=== PATIENT | male | born 1940 | race Hispanic/Latino ===

== ENCOUNTER → 2023-09-17 | Outpatient (CLI) | payer MEDICARE, OTHER | END | disposition home or self-care (01) | LOC: RAH 12:10 | PROVIDERS: ATTEND Internal Medicine | DX: I25.10 Atherosclerotic heart disease of native coronary artery without angina pectoris (principal); J44.9 Chronic obstructive pulmonary disease, unspecified; Z90.49 Acquired absence of other specified parts of digestive tract | CPT/HCPCS: 71250 ==

== ENCOUNTER 2023-10-30 09:32 | Emergency (ER) | payer MEDICARE ==
[~2023-10-30] VITALS: Ht 162.6 cm; Wt 83.5 kg
[~2023-10-30 09:32] MED LIST: FURO20TA4 PO; LEFL20TA22 PO; MULT-1367 PO; OLME5TAB29 PO; PRED20TA3 PO; ROSU20TA73 PO
[2023-10-30 10:29] LABS: CREATININE 1.2 mg/dL (0.5-1.5); POTASSIUM 4.1 mmol/L (3.5-5.1)
[2023-10-30 10:33] LABS: ALBUMIN 2.2 g/dL (3.5-5.0); BILIRUBIN,TOTAL 0.4 mg/dL (0.2-1.0); TOTAL PROTEIN, SERUM 4.8 g/dL (6.0-8.3)
[2023-10-30 11:07] LABS: BASOPHILS # (AUTO) 0.03 K/uL (0.00-0.20); BASOPHILS % (AUTO) 0.4 % (0.0-5.0); EOSINOPHILS # (AUTO) 0.03 K/uL (0.00-0.70); EOSINOPHILS % (AUTO) 0.4 % (0.0-8.0); HEMATOCRIT 22.3 % (42-54); LYMPHOCYTES % (AUTO) 12.3 % (21.0-51.0); MEAN CORPUSCULAR HEMOGLOBIN 29.3 pg (27.0-33.0); MEAN CORPUSCULAR HGB CONC 31.4 g/dL (32.0-36.0); MEAN CORPUSCULAR VOLUME 93.3 fL (79-99); MONOCYTES # (AUTO) 0.6 K/uL (0.1-1.0); MONOCYTES % (AUTO) 7.3 % (3.0-13.0); NEUTROPHILS # (AUTO) 5.8 K/uL (1.8-7.7); NEUTROPHILS % (AUTO) 71.1 % (40.0-77.0); NUCLEATED RED BLOOD CELLS 4.8 % (0.0-0.19); PLATELET COUNT (AUTO) 284 K/uL (130-400); RED BLOOD CELL COUNT(AUTO) 2.39 MIL/uL (4.50-6.20); RED CELL DISTRIBUTION WIDTH 22.1 % (11.0-15.5); WHITE BLOOD COUNT (AUTO) 8.2 K/uL (4.8-10.8)
[2023-10-30 11:21] LABS: INR <= 0.93 (0.85-1.15); PROTHROMBIN TIME 10.8 SEC (9.6-11.6)
[2023-10-30 11:22] LABS: PARTIAL THROMBOPLASTIN TIME 20.7 SEC (26.3-35.5)
[2023-10-30 11:31] LABS: B-TYPE NATRIURETIC PEPTIDE 246 pg/mL (0-100)
[2023-10-30 17:51] VITALS: BP 132/78; PULSE 85; RESP 18; O2SAT 98
== END 2023-10-30 17:52 | disposition home or self-care (01) ==
LOC: EDH 09:32
DX: D64.9 Anemia, unspecified (principal); K64.9 Unspecified hemorrhoids; I13.0 Hypertensive heart and chronic kidney disease with heart failure and stage 1 through stage 4 chronic kidney disease, or unspecified chronic kidney disease; E11.22 Type 2 diabetes mellitus with diabetic chronic kidney disease; N18.9 Chronic kidney disease, unspecified; M19.90 Unspecified osteoarthritis, unspecified site; J44.9 Chronic obstructive pulmonary disease, unspecified; Z79.52 Long term (current) use of systemic steroids; Z79.69 Long term (current) use of other immunomodulators and immunosuppressants; Z79.899 Other long term (current) drug therapy; Z90.49 Acquired absence of other specified parts of digestive tract
CPT/HCPCS: 99285; 36430; 71045; 84484; 80053; 83880; 85025; 85610; 85730; 86850; 86900; 86901; 86923; 36415; 93005; P9016

== ENCOUNTER → 2023-12-06 | Outpatient (CLI) | payer MEDICARE ==
[~2023-12-06] MED LIST changes: +APIX5TAB PO; +BACTSS PO; +LIDOCAINE HCL 4% LTA SOL 4 ML VIAL TP ONE; +METF-444 PO; +PANT40TA54 PO; +TRAM50TA4 PO
== END | disposition home or self-care (01) ==
LOC: WHH 11:13
PROVIDERS: ATTEND Nurse Practitioner Family
DX: S51.002A Unspecified open wound of left elbow, initial encounter (principal); E11.622 Type 2 diabetes mellitus with other skin ulcer; L97.821 Non-pressure chronic ulcer of other part of left lower leg limited to breakdown of skin; E11.621 Type 2 diabetes mellitus with foot ulcer; L97.521 Non-pressure chronic ulcer of other part of left foot limited to breakdown of skin; I87.8 Other specified disorders of veins; I13.0 Hypertensive heart and chronic kidney disease with heart failure and stage 1 through stage 4 chronic kidney disease, or unspecified chronic kidney disease; E11.22 Type 2 diabetes mellitus with diabetic chronic kidney disease; N18.4 Chronic kidney disease, stage 4 (severe); E11.51 Type 2 diabetes mellitus with diabetic peripheral angiopathy without gangrene; E78.5 Hyperlipidemia, unspecified; J44.9 Chronic obstructive pulmonary disease, unspecified; M06.9 Rheumatoid arthritis, unspecified; Z90.49 Acquired absence of other specified parts of digestive tract; Z79.899 Other long term (current) drug therapy; X58.XXXA Exposure to other specified factors, initial encounter; Y93.89 Activity, other specified; Y92.89 Other specified places as the place of occurrence of the external cause; Y99.8 Other external cause status
CPT/HCPCS: 29581; 87070; 87077; 87186; A6248; A4450; 29580

== ENCOUNTER → 2023-12-13 | Outpatient (CLI) | payer MEDICARE ==
[~2023-12-13] MED LIST changes: -APIX5TAB PO
== END | disposition home or self-care (01) ==
LOC: WHH 09:21
PROVIDERS: ATTEND Nurse Practitioner Family
DX: S51.002D Unspecified open wound of left elbow, subsequent encounter (principal); E11.622 Type 2 diabetes mellitus with other skin ulcer; L97.822 Non-pressure chronic ulcer of other part of left lower leg with fat layer exposed; E11.621 Type 2 diabetes mellitus with foot ulcer; L97.522 Non-pressure chronic ulcer of other part of left foot with fat layer exposed; I87.8 Other specified disorders of veins; I13.0 Hypertensive heart and chronic kidney disease with heart failure and stage 1 through stage 4 chronic kidney disease, or unspecified chronic kidney disease; E11.22 Type 2 diabetes mellitus with diabetic chronic kidney disease; N18.4 Chronic kidney disease, stage 4 (severe); E11.51 Type 2 diabetes mellitus with diabetic peripheral angiopathy without gangrene; E78.5 Hyperlipidemia, unspecified; J44.9 Chronic obstructive pulmonary disease, unspecified; M06.9 Rheumatoid arthritis, unspecified; Z90.49 Acquired absence of other specified parts of digestive tract; Z79.899 Other long term (current) drug therapy; X58.XXXD Exposure to other specified factors, subsequent encounter
CPT/HCPCS: 11042; A6250; A4450; 29580

== ENCOUNTER → 2023-12-20 | Outpatient (CLI) | payer MEDICARE ==
[~2023-12-20] MED LIST changes: +APIX5TAB PO
== END | disposition home or self-care (01) ==
LOC: WHH 09:27
PROVIDERS: ATTEND Nurse Practitioner Family
DX: E11.622 Type 2 diabetes mellitus with other skin ulcer (principal); L97.822 Non-pressure chronic ulcer of other part of left lower leg with fat layer exposed; E11.621 Type 2 diabetes mellitus with foot ulcer; L97.522 Non-pressure chronic ulcer of other part of left foot with fat layer exposed; I87.8 Other specified disorders of veins; S51.002D Unspecified open wound of left elbow, subsequent encounter; E11.51 Type 2 diabetes mellitus with diabetic peripheral angiopathy without gangrene; E11.22 Type 2 diabetes mellitus with diabetic chronic kidney disease; I13.0 Hypertensive heart and chronic kidney disease with heart failure and stage 1 through stage 4 chronic kidney disease, or unspecified chronic kidney disease; N18.4 Chronic kidney disease, stage 4 (severe); J44.9 Chronic obstructive pulmonary disease, unspecified; E78.5 Hyperlipidemia, unspecified; M06.9 Rheumatoid arthritis, unspecified; Z90.49 Acquired absence of other specified parts of digestive tract; Z79.899 Other long term (current) drug therapy; X58.XXXD Exposure to other specified factors, subsequent encounter
CPT/HCPCS: 93925; G0463

== ENCOUNTER → 2023-12-20 | Outpatient (CLI) | payer MEDICARE ==
[~2023-12-20] MED LIST changes: -APIX5TAB PO; -LIDOCAINE HCL 4% LTA SOL 4 ML VIAL TP ONE
== END | disposition home or self-care (01) ==
LOC: RAH 13:27
PROVIDERS: ATTEND Nurse Practitioner Family
DX: I73.9 Peripheral vascular disease, unspecified (principal)
CPT/HCPCS: 93925

== ENCOUNTER 2023-12-24 11:51 | Observation (INO) | payer MEDICARE ==
[~2023-12-24] VITALS: Ht 172.7 cm; Wt 81.6 kg
[~2023-12-24 11:51] MED LIST changes: -APIX5TAB PO; -BACTSS PO; -METF-444 PO; -PANT40TA54 PO; -TRAM50TA4 PO
[2023-12-24] MEDS ORDERED: HEPARIN 1,000 UNIT VIAL IVP SCH (12:30)
[2023-12-24] MEDS: HEPARIN 5,000 UNIT VIAL IV ONE (12:51)
[2023-12-24] MEDS: HEPARIN 5,000 UNIT VIAL ONE (12:52)
[2023-12-24 12:58] LABS: BASOPHILS # (AUTO) 0.03 K/uL (0.00-0.20); BASOPHILS % (AUTO) 0.3 % (0.0-5.0); EOSINOPHILS # (AUTO) 0.01 K/uL (0.00-0.70); EOSINOPHILS % (AUTO) 0.1 % (0.0-8.0); HEMATOCRIT 32.4 % (42-54); IMMATURE GRANULOCYTE ABSOLUTE 0.33 K/uL (0-1); LYMPHOCYTES # (AUTO) 1.7 K/uL (1.0-4.8); LYMPHOCYTES % (AUTO) 14.5 % (21.0-51.0); MEAN CORPUSCULAR HEMOGLOBIN 29.1 pg (27.0-33.0); MEAN CORPUSCULAR HGB CONC 31.5 g/dL (32.0-36.0); MEAN CORPUSCULAR VOLUME 92.3 fL (79-99); MONOCYTES # (AUTO) 0.4 K/uL (0.1-1.0); MONOCYTES % (AUTO) 3.5 % (3.0-13.0); NEUTROPHILS # (AUTO) 9.3 K/uL (1.8-7.7); NEUTROPHILS % (AUTO) 78.8 % (40.0-77.0); PLATELET COUNT (AUTO) 238 K/uL (130-400); RED BLOOD CELL COUNT(AUTO) 3.51 MIL/uL (4.50-6.20); RED CELL DISTRIBUTION WIDTH 17.2 % (11.0-15.5); WHITE BLOOD COUNT (AUTO) 11.8 K/uL (4.8-10.8)
[2023-12-24 13:08] LABS: INR <= 0.93 (0.85-1.15); PROTHROMBIN TIME 10.3 SEC (9.6-11.6)
[2023-12-24 13:10] LABS: PARTIAL THROMBOPLASTIN TIME 22.5 SEC (26.3-35.5)
[2023-12-24 13:14] LABS: CREATININE 1.7 mg/dL (0.5-1.3); POTASSIUM 4.8 mmol/L (3.5-5.1)
[2023-12-24 13:19] LABS: BILIRUBIN,TOTAL 0.3 mg/dL (0.2-1.0); TOTAL PROTEIN, SERUM 6.5 g/dL (6.0-8.3)
[2023-12-24] MEDS: HEPARIN 25,000 UNITS/250ML D5W 250 ML IV SCH (15:26)
[2023-12-24 21:29] LABS: INR <= 0.93 (0.85-1.15)
[2023-12-24 21:30] LABS: PARTIAL THROMBOPLASTIN TIME 79.2 SEC (26.3-35.5)
[2023-12-24] MEDS ORDERED: TRAM50TA4 PO (22:35)
[2023-12-24] MEDS ORDERED: METF-444 PO (22:35)
[2023-12-24] MEDS ORDERED: PANT40TA54 PO (22:35)
[2023-12-24 23:00] VITALS: O2SAT 97
[2023-12-24 23:11] VITALS: BP 147/74; PULSE 98; RESP 18
[2023-12-24] MEDS ORDERED: BACTSS PO (23:21)
[2023-12-24 23:51] VITALS: O2SAT 98
[2023-12-25 03:47] LABS: HEMATOCRIT 27.8 % (42-54); MEAN CORPUSCULAR HEMOGLOBIN 29.4 pg (27.0-33.0); MEAN CORPUSCULAR VOLUME 91.7 fL (79-99); RED BLOOD CELL COUNT(AUTO) 3.03 MIL/uL (4.50-6.20); RED CELL DISTRIBUTION WIDTH 17.2 % (11.0-15.5)
[2023-12-25 03:59] LABS: INR <= 0.93 (0.85-1.15)
[2023-12-25 04:08] LABS: ALBUMIN 2.4 g/dL (3.5-5.0); BILIRUBIN,TOTAL 0.2 mg/dL (0.2-1.0); CREATININE 1.6 mg/dL (0.5-1.3); POTASSIUM 4.2 mmol/L (3.5-5.1); TOTAL PROTEIN, SERUM 5.2 g/dL (6.0-8.3)
[2023-12-25 04:20] LABS: PARTIAL THROMBOPLASTIN TIME > 139.0 SEC (26.3-35.5)
[2023-12-25 04:46] VITALS: BP 134/75; PULSE 88; RESP 18
[2023-12-25] MEDS ORDERED: TRAMADOL HCL 50 MG TABLET PO PRN (06:30)
[2023-12-25] MEDS: TRAMADOL HCL 50 MG TABLET PO PRN (06:50)
[2023-12-25 07:00] VITALS: BP 127/63; PULSE 89; RESP 20
[2023-12-25 08:00] VITALS: O2SAT 96
[2023-12-25] MEDS: SULFAMETHOXAZOLE PO SCH (09:00)
[2023-12-25] MEDS: TRIMETHOPRIM PO SCH (09:00)
[2023-12-25] MEDS: FUROSEMIDE 20 MG TABLET PO SCH (09:00)
[2023-12-25] MEDS ORDERED: SODIUM HYPOCHLORITE 0.125% 473 ML SOLUTION TP SCH (09:00)
[2023-12-25] MEDS: (Leflunomide 20 MG) PO SCH (09:00)
[2023-12-25] MEDS ORDERED: NON-FORMULARY MEDICATION 1 EACH (Olmesartan Medoxomil 5 MG) PO SCH (09:00)
[2023-12-25] MEDS: PREDNISONE 20 MG TABLET PO SCH (09:17)
[2023-12-25] MEDS: APIXABAN 5 MG TABLET PO SCH (09:17)
[2023-12-25] MEDS: MULTIVITAMIN TABLET PO SCH (09:17)
[2023-12-25] MEDS: PANTOPRAZOLE 40 MG TAB DR PO SCH (09:17)
[2023-12-25] MEDS: LOSARTAN 25 MG TABLET PO SCH (09:19)
[2023-12-25 10:16] VITALS: PULSE 110; PULSE 133; RESP 18; RESP 26; O2SAT 95; O2SAT 98
[2023-12-25 11:00] VITALS: BP 123/69; PULSE 92; RESP 20
[2023-12-25] MEDS ORDERED: APIX5TAB PO ×2 (12:31→12:34)
== END 2023-12-25 14:22 | disposition home or self-care (01) ==
LOC: EDH 11:51 → INTOOBSV 18:39 → EDHIP 18:39 → 2DH 21:10
PROVIDERS: ADMIT Internal Medicine; ATTEND Internal Medicine
DX: I82.412 Acute embolism and thrombosis of left femoral vein (principal); K64.9 Unspecified hemorrhoids; D64.9 Anemia, unspecified; L97.929 Non-pressure chronic ulcer of unspecified part of left lower leg with unspecified severity; M13.822 Other specified arthritis, left elbow; R60.0 Localized edema; J44.9 Chronic obstructive pulmonary disease, unspecified; E11.9 Type 2 diabetes mellitus without complications; I10 Essential (primary) hypertension; Z90.49 Acquired absence of other specified parts of digestive tract
CPT/HCPCS: 96376; 96366 ×2; 99285; 84484 ×2; 80053 ×2; 85025; 85610 ×3; 85730 ×3; 36415 ×2; 71045; 73221; 96365; 94760 ×2; 85027; 82948; 93005; J1644 ×3; G0378 ×2; 96372

== ENCOUNTER → 2023-12-24 | Outpatient (CLI) | payer MEDICARE ==
[~2023-12-24] MED LIST changes: +APIX5TAB PO
== END | disposition home or self-care (01) ==
LOC: RAH 09:47
PROVIDERS: ATTEND Nurse Practitioner Family
DX: S51.002A Unspecified open wound of left elbow, initial encounter (principal); M79.89 Other specified soft tissue disorders; M19.022 Primary osteoarthritis, left elbow; X58.XXXA Exposure to other specified factors, initial encounter; Y93.89 Activity, other specified; Y92.89 Other specified places as the place of occurrence of the external cause; Y99.8 Other external cause status
CPT/HCPCS: 73221

== ENCOUNTER → 2023-12-27 | Outpatient (CLI) | payer MEDICARE ==
[~2023-12-27] MED LIST changes: +APIX5TAB PO; +BACTSS PO; +LIDOCAINE HCL 4% LTA SOL 4 ML VIAL TP ONE; +METF-444 PO; +PANT40TA54 PO; +TRAM50TA4 PO
== END | disposition home or self-care (01) ==
LOC: WHH 09:19
PROVIDERS: ATTEND Family Medicine
DX: S51.002D Unspecified open wound of left elbow, subsequent encounter (principal); E11.622 Type 2 diabetes mellitus with other skin ulcer; L97.822 Non-pressure chronic ulcer of other part of left lower leg with fat layer exposed; E11.621 Type 2 diabetes mellitus with foot ulcer; L97.522 Non-pressure chronic ulcer of other part of left foot with fat layer exposed; I87.8 Other specified disorders of veins; E11.51 Type 2 diabetes mellitus with diabetic peripheral angiopathy without gangrene; E11.22 Type 2 diabetes mellitus with diabetic chronic kidney disease; I13.0 Hypertensive heart and chronic kidney disease with heart failure and stage 1 through stage 4 chronic kidney disease, or unspecified chronic kidney disease; N18.4 Chronic kidney disease, stage 4 (severe); J44.9 Chronic obstructive pulmonary disease, unspecified; E78.5 Hyperlipidemia, unspecified; M06.9 Rheumatoid arthritis, unspecified; Z90.49 Acquired absence of other specified parts of digestive tract; Z79.899 Other long term (current) drug therapy; X58.XXXD Exposure to other specified factors, subsequent encounter
CPT/HCPCS: 11042

== ENCOUNTER → 2024-01-03 | Outpatient (CLI) | payer MEDICARE ==
[~2024-01-03] MED LIST changes: -LIDOCAINE HCL 4% LTA SOL 4 ML VIAL TP ONE
== END | disposition home or self-care (01) ==
LOC: WHH 09:19
PROVIDERS: ATTEND Nurse Practitioner Family
DX: S51.002D Unspecified open wound of left elbow, subsequent encounter (principal); E11.622 Type 2 diabetes mellitus with other skin ulcer; L97.822 Non-pressure chronic ulcer of other part of left lower leg with fat layer exposed; E11.621 Type 2 diabetes mellitus with foot ulcer; L97.522 Non-pressure chronic ulcer of other part of left foot with fat layer exposed; I87.8 Other specified disorders of veins; E11.51 Type 2 diabetes mellitus with diabetic peripheral angiopathy without gangrene; E11.22 Type 2 diabetes mellitus with diabetic chronic kidney disease; I13.0 Hypertensive heart and chronic kidney disease with heart failure and stage 1 through stage 4 chronic kidney disease, or unspecified chronic kidney disease; N18.4 Chronic kidney disease, stage 4 (severe); J44.9 Chronic obstructive pulmonary disease, unspecified; E78.5 Hyperlipidemia, unspecified; M06.9 Rheumatoid arthritis, unspecified; Z90.49 Acquired absence of other specified parts of digestive tract; Z79.899 Other long term (current) drug therapy; X58.XXXD Exposure to other specified factors, subsequent encounter
CPT/HCPCS: 11042; A6021

== ENCOUNTER → 2024-01-10 | Outpatient (CLI) | payer MEDICARE ==
[~2024-01-10] MED LIST changes: +LIDOCAINE HCL 4% LTA SOL 4 ML VIAL TP ONE
== END | disposition home or self-care (01) ==
LOC: WHH 09:28
PROVIDERS: ATTEND Nurse Practitioner Family
DX: S51.002D Unspecified open wound of left elbow, subsequent encounter (principal); E11.622 Type 2 diabetes mellitus with other skin ulcer; L97.822 Non-pressure chronic ulcer of other part of left lower leg with fat layer exposed; E11.621 Type 2 diabetes mellitus with foot ulcer; L97.522 Non-pressure chronic ulcer of other part of left foot with fat layer exposed; I87.8 Other specified disorders of veins; E11.51 Type 2 diabetes mellitus with diabetic peripheral angiopathy without gangrene; E11.22 Type 2 diabetes mellitus with diabetic chronic kidney disease; I13.0 Hypertensive heart and chronic kidney disease with heart failure and stage 1 through stage 4 chronic kidney disease, or unspecified chronic kidney disease; N18.4 Chronic kidney disease, stage 4 (severe); J44.9 Chronic obstructive pulmonary disease, unspecified; E78.5 Hyperlipidemia, unspecified; M06.9 Rheumatoid arthritis, unspecified; Z90.49 Acquired absence of other specified parts of digestive tract; Z79.899 Other long term (current) drug therapy
CPT/HCPCS: G0463; A6021; A6196; A4450

== ENCOUNTER → 2024-01-17 | Outpatient (CLI) | payer MEDICARE | END | disposition home or self-care (01) | LOC: WHH 09:16 | PROVIDERS: ATTEND Nurse Practitioner Family | DX: S51.002D Unspecified open wound of left elbow, subsequent encounter (principal); E11.622 Type 2 diabetes mellitus with other skin ulcer; L97.822 Non-pressure chronic ulcer of other part of left lower leg with fat layer exposed; E11.621 Type 2 diabetes mellitus with foot ulcer; L97.522 Non-pressure chronic ulcer of other part of left foot with fat layer exposed; I87.8 Other specified disorders of veins; E11.51 Type 2 diabetes mellitus with diabetic peripheral angiopathy without gangrene; E11.22 Type 2 diabetes mellitus with diabetic chronic kidney disease; I13.0 Hypertensive heart and chronic kidney disease with heart failure and stage 1 through stage 4 chronic kidney disease, or unspecified chronic kidney disease; N18.4 Chronic kidney disease, stage 4 (severe); J44.9 Chronic obstructive pulmonary disease, unspecified; E78.5 Hyperlipidemia, unspecified; M06.9 Rheumatoid arthritis, unspecified; Z90.49 Acquired absence of other specified parts of digestive tract; Z79.899 Other long term (current) drug therapy; X58.XXXD Exposure to other specified factors, subsequent encounter | CPT/HCPCS: G0463; A6021 ==

== ENCOUNTER → 2024-01-24 | Outpatient (CLI) | payer MEDICARE | END | disposition home or self-care (01) | LOC: WHH 09:16 | PROVIDERS: ATTEND Nurse Practitioner Family | DX: S51.002D Unspecified open wound of left elbow, subsequent encounter (principal); E11.622 Type 2 diabetes mellitus with other skin ulcer; L97.822 Non-pressure chronic ulcer of other part of left lower leg with fat layer exposed; I87.8 Other specified disorders of veins; E11.51 Type 2 diabetes mellitus with diabetic peripheral angiopathy without gangrene; E11.22 Type 2 diabetes mellitus with diabetic chronic kidney disease; I13.0 Hypertensive heart and chronic kidney disease with heart failure and stage 1 through stage 4 chronic kidney disease, or unspecified chronic kidney disease; N18.4 Chronic kidney disease, stage 4 (severe); J44.9 Chronic obstructive pulmonary disease, unspecified; E78.5 Hyperlipidemia, unspecified; M06.9 Rheumatoid arthritis, unspecified; Z90.49 Acquired absence of other specified parts of digestive tract; Z79.899 Other long term (current) drug therapy; X58.XXXD Exposure to other specified factors, subsequent encounter | CPT/HCPCS: G0463; A6021 ==

== ENCOUNTER → 2024-01-31 | Outpatient (CLI) | payer MEDICARE | END | disposition home or self-care (01) | LOC: WHH 09:36 | PROVIDERS: ATTEND Nurse Practitioner Family | DX: S51.002D Unspecified open wound of left elbow, subsequent encounter (principal); E11.622 Type 2 diabetes mellitus with other skin ulcer; L97.922 Non-pressure chronic ulcer of unspecified part of left lower leg with fat layer exposed; I87.8 Other specified disorders of veins; E11.51 Type 2 diabetes mellitus with diabetic peripheral angiopathy without gangrene; E11.22 Type 2 diabetes mellitus with diabetic chronic kidney disease; I13.0 Hypertensive heart and chronic kidney disease with heart failure and stage 1 through stage 4 chronic kidney disease, or unspecified chronic kidney disease; N18.4 Chronic kidney disease, stage 4 (severe); J44.9 Chronic obstructive pulmonary disease, unspecified; E78.5 Hyperlipidemia, unspecified; M06.9 Rheumatoid arthritis, unspecified; Z90.49 Acquired absence of other specified parts of digestive tract; Z79.899 Other long term (current) drug therapy; X58.XXXD Exposure to other specified factors, subsequent encounter | CPT/HCPCS: G0463; A6212; A6021; A6196 ==

== ENCOUNTER → 2024-02-07 | Outpatient (CLI) | payer MEDICARE | END | disposition home or self-care (01) | LOC: WHH 09:20 | PROVIDERS: ATTEND Nurse Practitioner Family | DX: S51.002D Unspecified open wound of left elbow, subsequent encounter (principal); E11.622 Type 2 diabetes mellitus with other skin ulcer; L97.822 Non-pressure chronic ulcer of other part of left lower leg with fat layer exposed; I87.8 Other specified disorders of veins; E11.51 Type 2 diabetes mellitus with diabetic peripheral angiopathy without gangrene; E11.22 Type 2 diabetes mellitus with diabetic chronic kidney disease; I13.0 Hypertensive heart and chronic kidney disease with heart failure and stage 1 through stage 4 chronic kidney disease, or unspecified chronic kidney disease; N18.4 Chronic kidney disease, stage 4 (severe); J44.9 Chronic obstructive pulmonary disease, unspecified; E78.5 Hyperlipidemia, unspecified; M06.9 Rheumatoid arthritis, unspecified; Z90.49 Acquired absence of other specified parts of digestive tract; Z79.899 Other long term (current) drug therapy; X58.XXXD Exposure to other specified factors, subsequent encounter | CPT/HCPCS: 11042; A6212; A6021; A6022 ==

== ENCOUNTER → 2024-02-14 | Outpatient (CLI) | payer MEDICARE | END | disposition home or self-care (01) | LOC: WHH 09:28 | PROVIDERS: ATTEND Nurse Practitioner Family | DX: E11.622 Type 2 diabetes mellitus with other skin ulcer (principal); L97.822 Non-pressure chronic ulcer of other part of left lower leg with fat layer exposed; S51.002D Unspecified open wound of left elbow, subsequent encounter; I87.8 Other specified disorders of veins; E11.51 Type 2 diabetes mellitus with diabetic peripheral angiopathy without gangrene; E11.22 Type 2 diabetes mellitus with diabetic chronic kidney disease; I13.0 Hypertensive heart and chronic kidney disease with heart failure and stage 1 through stage 4 chronic kidney disease, or unspecified chronic kidney disease; N18.4 Chronic kidney disease, stage 4 (severe); J44.9 Chronic obstructive pulmonary disease, unspecified; E78.5 Hyperlipidemia, unspecified; M06.9 Rheumatoid arthritis, unspecified; Z90.49 Acquired absence of other specified parts of digestive tract; Z79.899 Other long term (current) drug therapy; X58.XXXD Exposure to other specified factors, subsequent encounter | CPT/HCPCS: 87070; G0463; A6197; A6022 ==

== ENCOUNTER → 2024-02-21 | Outpatient (CLI) | payer MEDICARE | END | disposition home or self-care (01) | LOC: WHH 09:32 | PROVIDERS: ATTEND Nurse Practitioner Family | DX: E11.622 Type 2 diabetes mellitus with other skin ulcer (principal); L97.822 Non-pressure chronic ulcer of other part of left lower leg with fat layer exposed; I87.8 Other specified disorders of veins; S51.002D Unspecified open wound of left elbow, subsequent encounter; E11.51 Type 2 diabetes mellitus with diabetic peripheral angiopathy without gangrene; E11.22 Type 2 diabetes mellitus with diabetic chronic kidney disease; I13.0 Hypertensive heart and chronic kidney disease with heart failure and stage 1 through stage 4 chronic kidney disease, or unspecified chronic kidney disease; N18.4 Chronic kidney disease, stage 4 (severe); J44.9 Chronic obstructive pulmonary disease, unspecified; E78.5 Hyperlipidemia, unspecified; M06.9 Rheumatoid arthritis, unspecified; Z90.49 Acquired absence of other specified parts of digestive tract; Z79.899 Other long term (current) drug therapy; X58.XXXD Exposure to other specified factors, subsequent encounter | CPT/HCPCS: 11042; A6212; A6021; A6209; A4450 ==

== ENCOUNTER → 2024-02-26 | Outpatient (CLI) | payer MEDICARE ==
[~2024-02-26] MED LIST changes: -LIDOCAINE HCL 4% LTA SOL 4 ML VIAL TP ONE
== END | disposition home or self-care (01) ==
LOC: RAH 12:27
PROVIDERS: ATTEND Internal Medicine
DX: R60.9 Edema, unspecified (principal)
CPT/HCPCS: 93970

== ENCOUNTER → 2024-02-28 | Outpatient (CLI) | payer MEDICARE ==
[~2024-02-28] MED LIST changes: +LIDOCAINE HCL 4% LTA SOL 4 ML VIAL TP ONE
== END | disposition home or self-care (01) ==
LOC: WHH 09:17
PROVIDERS: ATTEND Nurse Practitioner Family
DX: E11.622 Type 2 diabetes mellitus with other skin ulcer (principal); L97.822 Non-pressure chronic ulcer of other part of left lower leg with fat layer exposed; S51.002D Unspecified open wound of left elbow, subsequent encounter; I87.8 Other specified disorders of veins; E11.51 Type 2 diabetes mellitus with diabetic peripheral angiopathy without gangrene; E11.22 Type 2 diabetes mellitus with diabetic chronic kidney disease; I13.0 Hypertensive heart and chronic kidney disease with heart failure and stage 1 through stage 4 chronic kidney disease, or unspecified chronic kidney disease; N18.4 Chronic kidney disease, stage 4 (severe); J44.9 Chronic obstructive pulmonary disease, unspecified; E78.5 Hyperlipidemia, unspecified; M06.9 Rheumatoid arthritis, unspecified; Z90.49 Acquired absence of other specified parts of digestive tract; Z79.899 Other long term (current) drug therapy; X58.XXXD Exposure to other specified factors, subsequent encounter
CPT/HCPCS: 29580; A6212; A6021; A6209; A6022; A6456

== ENCOUNTER → 2024-03-06 | Outpatient (CLI) | payer MEDICARE | END | disposition home or self-care (01) | LOC: WHH 09:34 | PROVIDERS: ATTEND Nurse Practitioner Family | DX: E11.622 Type 2 diabetes mellitus with other skin ulcer (principal); L97.822 Non-pressure chronic ulcer of other part of left lower leg with fat layer exposed; S51.002D Unspecified open wound of left elbow, subsequent encounter; I87.8 Other specified disorders of veins; E11.51 Type 2 diabetes mellitus with diabetic peripheral angiopathy without gangrene; E11.22 Type 2 diabetes mellitus with diabetic chronic kidney disease; I13.0 Hypertensive heart and chronic kidney disease with heart failure and stage 1 through stage 4 chronic kidney disease, or unspecified chronic kidney disease; N18.4 Chronic kidney disease, stage 4 (severe); J44.9 Chronic obstructive pulmonary disease, unspecified; E78.5 Hyperlipidemia, unspecified; M06.9 Rheumatoid arthritis, unspecified; Z90.49 Acquired absence of other specified parts of digestive tract; Z79.899 Other long term (current) drug therapy; X58.XXXD Exposure to other specified factors, subsequent encounter | CPT/HCPCS: 29580; A6212; A4649; A6456 ==

== ENCOUNTER → 2024-03-20 | Outpatient (CLI) | payer MEDICARE | END | disposition home or self-care (01) | LOC: WHH 09:25 | PROVIDERS: ATTEND Nurse Practitioner Family | DX: S51.002D Unspecified open wound of left elbow, subsequent encounter (principal); E11.622 Type 2 diabetes mellitus with other skin ulcer; L97.822 Non-pressure chronic ulcer of other part of left lower leg with fat layer exposed; I87.8 Other specified disorders of veins; E11.51 Type 2 diabetes mellitus with diabetic peripheral angiopathy without gangrene; E11.22 Type 2 diabetes mellitus with diabetic chronic kidney disease; I13.0 Hypertensive heart and chronic kidney disease with heart failure and stage 1 through stage 4 chronic kidney disease, or unspecified chronic kidney disease; N18.4 Chronic kidney disease, stage 4 (severe); J44.9 Chronic obstructive pulmonary disease, unspecified; E78.5 Hyperlipidemia, unspecified; M06.9 Rheumatoid arthritis, unspecified; Z90.49 Acquired absence of other specified parts of digestive tract; Z79.899 Other long term (current) drug therapy; W19.XXXD Unspecified fall, subsequent encounter | CPT/HCPCS: 17250; A4649; A6456 ==

== ENCOUNTER → 2024-03-27 | Outpatient (CLI) | payer MEDICARE | END | disposition home or self-care (01) | LOC: WHH 09:41 | PROVIDERS: ATTEND Nurse Practitioner Family | DX: E11.622 Type 2 diabetes mellitus with other skin ulcer (principal); L97.822 Non-pressure chronic ulcer of other part of left lower leg with fat layer exposed; I87.8 Other specified disorders of veins; S51.002D Unspecified open wound of left elbow, subsequent encounter; E11.51 Type 2 diabetes mellitus with diabetic peripheral angiopathy without gangrene; E11.22 Type 2 diabetes mellitus with diabetic chronic kidney disease; I13.0 Hypertensive heart and chronic kidney disease with heart failure and stage 1 through stage 4 chronic kidney disease, or unspecified chronic kidney disease; N18.4 Chronic kidney disease, stage 4 (severe); J44.9 Chronic obstructive pulmonary disease, unspecified; E78.5 Hyperlipidemia, unspecified; M06.9 Rheumatoid arthritis, unspecified; Z90.49 Acquired absence of other specified parts of digestive tract; Z79.899 Other long term (current) drug therapy; W19.XXXD Unspecified fall, subsequent encounter | CPT/HCPCS: 29580; A6212; A6456 ==

== ENCOUNTER → 2024-04-10 | Outpatient (CLI) | payer MEDICARE | END | disposition home or self-care (01) | LOC: WHH 09:18 | PROVIDERS: ATTEND Family Medicine | DX: E11.622 Type 2 diabetes mellitus with other skin ulcer (principal); L97.822 Non-pressure chronic ulcer of other part of left lower leg with fat layer exposed; I87.8 Other specified disorders of veins; S51.002D Unspecified open wound of left elbow, subsequent encounter; E11.51 Type 2 diabetes mellitus with diabetic peripheral angiopathy without gangrene; E11.22 Type 2 diabetes mellitus with diabetic chronic kidney disease; I13.0 Hypertensive heart and chronic kidney disease with heart failure and stage 1 through stage 4 chronic kidney disease, or unspecified chronic kidney disease; N18.4 Chronic kidney disease, stage 4 (severe); J44.9 Chronic obstructive pulmonary disease, unspecified; E78.5 Hyperlipidemia, unspecified; M06.9 Rheumatoid arthritis, unspecified; Z90.49 Acquired absence of other specified parts of digestive tract; Z79.899 Other long term (current) drug therapy; W19.XXXD Unspecified fall, subsequent encounter | CPT/HCPCS: 29580; A6212; A4649; A4450; A6456 ==

== ENCOUNTER → 2024-04-17 | Outpatient (CLI) | payer MEDICARE ==
[~2024-04-17] MED LIST changes: -LIDOCAINE HCL 4% LTA SOL 4 ML VIAL TP ONE
== END | disposition home or self-care (01) ==
LOC: WHH 09:20
PROVIDERS: ATTEND Family Medicine
DX: E11.622 Type 2 diabetes mellitus with other skin ulcer (principal); L97.822 Non-pressure chronic ulcer of other part of left lower leg with fat layer exposed; I87.8 Other specified disorders of veins; S51.002D Unspecified open wound of left elbow, subsequent encounter; E11.51 Type 2 diabetes mellitus with diabetic peripheral angiopathy without gangrene; E11.22 Type 2 diabetes mellitus with diabetic chronic kidney disease; I13.0 Hypertensive heart and chronic kidney disease with heart failure and stage 1 through stage 4 chronic kidney disease, or unspecified chronic kidney disease; N18.4 Chronic kidney disease, stage 4 (severe); J44.9 Chronic obstructive pulmonary disease, unspecified; E78.5 Hyperlipidemia, unspecified; M06.9 Rheumatoid arthritis, unspecified; Z90.49 Acquired absence of other specified parts of digestive tract; Z79.899 Other long term (current) drug therapy; W19.XXXD Unspecified fall, subsequent encounter
CPT/HCPCS: G0463; A6212; A4649

== ENCOUNTER → 2024-04-24 | Outpatient (CLI) | payer MEDICARE ==
[~2024-04-24] MED LIST changes: +LIDOCAINE HCL 4% LTA SOL 4 ML VIAL TP ONE
== END | disposition home or self-care (01) ==
LOC: WHH 09:16
PROVIDERS: ATTEND Family Medicine
DX: S51.002D Unspecified open wound of left elbow, subsequent encounter (principal); E11.622 Type 2 diabetes mellitus with other skin ulcer; L97.822 Non-pressure chronic ulcer of other part of left lower leg with fat layer exposed; I87.8 Other specified disorders of veins; E11.51 Type 2 diabetes mellitus with diabetic peripheral angiopathy without gangrene; E11.22 Type 2 diabetes mellitus with diabetic chronic kidney disease; I13.0 Hypertensive heart and chronic kidney disease with heart failure and stage 1 through stage 4 chronic kidney disease, or unspecified chronic kidney disease; N18.4 Chronic kidney disease, stage 4 (severe); J44.9 Chronic obstructive pulmonary disease, unspecified; E78.5 Hyperlipidemia, unspecified; M06.9 Rheumatoid arthritis, unspecified; Z87.891 Personal history of nicotine dependence; Z90.49 Acquired absence of other specified parts of digestive tract; Z79.899 Other long term (current) drug therapy; W19.XXXD Unspecified fall, subsequent encounter
CPT/HCPCS: G0463; A6212; A4649

== ENCOUNTER → 2024-05-01 | Outpatient (CLI) | payer MEDICARE ==
[~2024-05-01] MED LIST changes: -LIDOCAINE HCL 4% LTA SOL 4 ML VIAL TP ONE
== END | disposition home or self-care (01) ==
LOC: WHH 09:25
PROVIDERS: ATTEND Family Medicine
DX: S51.002D Unspecified open wound of left elbow, subsequent encounter (principal); E11.622 Type 2 diabetes mellitus with other skin ulcer; L97.822 Non-pressure chronic ulcer of other part of left lower leg with fat layer exposed; I87.8 Other specified disorders of veins; E11.51 Type 2 diabetes mellitus with diabetic peripheral angiopathy without gangrene; E11.22 Type 2 diabetes mellitus with diabetic chronic kidney disease; I13.0 Hypertensive heart and chronic kidney disease with heart failure and stage 1 through stage 4 chronic kidney disease, or unspecified chronic kidney disease; N18.4 Chronic kidney disease, stage 4 (severe); J44.9 Chronic obstructive pulmonary disease, unspecified; E78.5 Hyperlipidemia, unspecified; M06.9 Rheumatoid arthritis, unspecified; Z87.891 Personal history of nicotine dependence; Z90.49 Acquired absence of other specified parts of digestive tract; Z79.899 Other long term (current) drug therapy; W19.XXXD Unspecified fall, subsequent encounter
CPT/HCPCS: G0463; A6212; A4649

== ENCOUNTER → 2024-07-16 | Outpatient (CLI) | payer MEDICARE ==
[~2024-07-16] MED LIST changes: -ROSU20TA73 PO; +ROSU20TA98 PO
--- NOTE | 2024-07-16 15:29 | HMCIMG ---
US VENOUS DOPPLER BILATERAL HISTORY: Edema COMPARISON: None TECHNIQUE: Bilateral lower extremity venous Doppler ultrasound study was performed. FINDINGS: The common femoral, femoral, popliteal, and posterior tibial veins are visualized. Normal flow with augmentation and compressibilities are demonstrated. The greater saphenous veins are also seen and grossly patent. IMPRESSION: 1. No evidence of deep venous thrombosis is seen.
== END | disposition home or self-care (01) ==
LOC: RAH 14:36
PROVIDERS: ATTEND Internal Medicine
DX: R60.0 Localized edema (principal)
CPT/HCPCS: 93970

== ENCOUNTER → 2024-07-22 | Outpatient (CLI) | payer MEDICARE | END | disposition home or self-care (01) | LOC: WHH 08:02 | PROVIDERS: ATTEND Family Medicine | DX: S80.821A Blister (nonthermal), right lower leg, initial encounter (principal); S80.822A Blister (nonthermal), left lower leg, initial encounter; I73.9 Peripheral vascular disease, unspecified; R22.43 Localized swelling, mass and lump, lower limb, bilateral; E78.5 Hyperlipidemia, unspecified; M06.9 Rheumatoid arthritis, unspecified; E11.9 Type 2 diabetes mellitus without complications; I10 Essential (primary) hypertension; Z90.49 Acquired absence of other specified parts of digestive tract; Z87.891 Personal history of nicotine dependence; Z79.84 Long term (current) use of oral hypoglycemic drugs; Z79.899 Other long term (current) drug therapy; X58.XXXA Exposure to other specified factors, initial encounter; Y93.89 Activity, other specified; Y92.89 Other specified places as the place of occurrence of the external cause; Y99.8 Other external cause status | CPT/HCPCS: 29580; A4450; A6456 ==

== ENCOUNTER → 2024-07-29 | Outpatient (CLI) | payer MEDICARE | END | disposition home or self-care (01) | LOC: WHH 07:55 | PROVIDERS: ATTEND Family Medicine | DX: S80.821D Blister (nonthermal), right lower leg, subsequent encounter (principal); S80.822D Blister (nonthermal), left lower leg, subsequent encounter; E11.51 Type 2 diabetes mellitus with diabetic peripheral angiopathy without gangrene; R22.43 Localized swelling, mass and lump, lower limb, bilateral; I10 Essential (primary) hypertension; E78.5 Hyperlipidemia, unspecified; M06.9 Rheumatoid arthritis, unspecified; Z90.49 Acquired absence of other specified parts of digestive tract; Z87.891 Personal history of nicotine dependence; Z79.84 Long term (current) use of oral hypoglycemic drugs; Z79.899 Other long term (current) drug therapy; X58.XXXD Exposure to other specified factors, subsequent encounter | CPT/HCPCS: 29580; A6456 ==

== ENCOUNTER → 2024-09-16 | Outpatient (CLI) | payer MEDICARE | END | disposition home or self-care (01) | LOC: WHH 08:25 | PROVIDERS: ATTEND Family Medicine | DX: S80.822D Blister (nonthermal), left lower leg, subsequent encounter (principal); S80.821D Blister (nonthermal), right lower leg, subsequent encounter; E11.622 Type 2 diabetes mellitus with other skin ulcer; L97.821 Non-pressure chronic ulcer of other part of left lower leg limited to breakdown of skin; E11.51 Type 2 diabetes mellitus with diabetic peripheral angiopathy without gangrene; I10 Essential (primary) hypertension; E78.5 Hyperlipidemia, unspecified; I89.0 Lymphedema, not elsewhere classified; I73.9 Peripheral vascular disease, unspecified; R22.43 Localized swelling, mass and lump, lower limb, bilateral; M06.9 Rheumatoid arthritis, unspecified; Z90.49 Acquired absence of other specified parts of digestive tract; Z87.891 Personal history of nicotine dependence; Z79.84 Long term (current) use of oral hypoglycemic drugs; Z79.899 Other long term (current) drug therapy; X58.XXXD Exposure to other specified factors, subsequent encounter | CPT/HCPCS: G0463 ==

== ENCOUNTER → 2024-09-19 | Outpatient (CLI) | payer MEDICARE ==
--- NOTE | 2024-09-19 14:17 | HMCIMG ---
US ARTERIAL BILAT LOW EXT DUPL HISTORY: Peripheral vascular disease COMPARISON: None TECHNIQUE: Bilateral lower extremity arterial Doppler ultrasound study was performed. FINDINGS: Abnormal monophasic arterial waveforms are noted in bilateral posterior tibial arteries. Normal triphasic and biphasic arterial waveforms are noted in the common femoral, deep femoral, superficial femoral, popliteal, anterior tibial and dorsalis pedal arteries. On the right, the peak systolic velocity of the common femoral artery is 114 cm/s, the proximal femoral artery is 73 cm/s, the mid femoral artery is 76 cm/s, the distal femoral artery is 75 cm/s, the proximal popliteal artery is 54 cm/s, the distal popliteal artery is 55 cm/s, the anterior tibial artery is 97 cm/s, the posterior tibial artery artery is 27 cm/s,and the dorsalis pedal artery is 72 cm/s. On the left, the peak systolic velocity of the common femoral artery is 105 cm/s, the proximal femoral artery is 103 cm/s, the mid femoral artery is 89 cm/s, the distal femoral artery is 60 cm/s, the proximal popliteal artery is 67 cm/s, the distal popliteal artery is 46 cm/s, the anterior tibial artery is 94 cm/s, the posterior tibial artery artery is 24 cm/s,and the dorsalis pedal artery is 65 cm/s. IMPRESSION: 1. Atherosclerotic disease. 2. Abnormal monophasic arterial waveforms are noted in bilateral posterior tibial arteries.
--- NOTE | 2024-09-19 14:17 | HMCIMG ---
US VENOUS DOPPLER BILATERAL HISTORY: Peripheral vascular disease COMPARISON: 07/16/2024 TECHNIQUE: Bilateral lower extremity venous Doppler ultrasound study was performed. FINDINGS: The common femoral, femoral, popliteal, and posterior tibial veins are visualized. Normal flow with augmentation and compressibilities are demonstrated. The greater saphenous veins are also seen and grossly patent. IMPRESSION: 1. No evidence of deep venous thrombosis is seen.
== END | disposition home or self-care (01) ==
LOC: RAH 12:56
PROVIDERS: ATTEND Family Medicine
DX: I25.10 Atherosclerotic heart disease of native coronary artery without angina pectoris (principal); I77.9 Disorder of arteries and arterioles, unspecified; I73.9 Peripheral vascular disease, unspecified; I87.2 Venous insufficiency (chronic) (peripheral); R60.0 Localized edema; M79.661 Pain in right lower leg; M79.662 Pain in left lower leg
CPT/HCPCS: 93925; 93970

== ENCOUNTER → 2024-09-23 | Outpatient (CLI) | payer MEDICARE | END | disposition home or self-care (01) | LOC: WHH 08:41 | PROVIDERS: ATTEND Family Medicine | DX: S80.822D Blister (nonthermal), left lower leg, subsequent encounter (principal); S80.821D Blister (nonthermal), right lower leg, subsequent encounter; I89.0 Lymphedema, not elsewhere classified; E11.51 Type 2 diabetes mellitus with diabetic peripheral angiopathy without gangrene; I10 Essential (primary) hypertension; E78.5 Hyperlipidemia, unspecified; I73.9 Peripheral vascular disease, unspecified; R22.43 Localized swelling, mass and lump, lower limb, bilateral; M06.9 Rheumatoid arthritis, unspecified; Z90.49 Acquired absence of other specified parts of digestive tract; Z87.891 Personal history of nicotine dependence; Z79.84 Long term (current) use of oral hypoglycemic drugs; Z79.899 Other long term (current) drug therapy; X58.XXXD Exposure to other specified factors, subsequent encounter | CPT/HCPCS: G0463 ==

== ENCOUNTER → 2024-10-21 | Outpatient (CLI) | payer MEDICARE | END | disposition home or self-care (01) | LOC: WHH 08:17 | PROVIDERS: ATTEND Family Medicine | DX: I89.0 Lymphedema, not elsewhere classified (principal); R22.43 Localized swelling, mass and lump, lower limb, bilateral; S80.822D Blister (nonthermal), left lower leg, subsequent encounter; S80.821D Blister (nonthermal), right lower leg, subsequent encounter; E11.51 Type 2 diabetes mellitus with diabetic peripheral angiopathy without gangrene; I10 Essential (primary) hypertension; E78.5 Hyperlipidemia, unspecified; I73.9 Peripheral vascular disease, unspecified; M06.9 Rheumatoid arthritis, unspecified; Z90.49 Acquired absence of other specified parts of digestive tract; Z87.891 Personal history of nicotine dependence; Z79.84 Long term (current) use of oral hypoglycemic drugs; Z79.899 Other long term (current) drug therapy; X58.XXXD Exposure to other specified factors, subsequent encounter | CPT/HCPCS: G0463 ==

== ENCOUNTER → 2024-11-18 | Outpatient (CLI) | payer MEDICARE | END | disposition home or self-care (01) | LOC: WHH 08:27 | PROVIDERS: ATTEND Family Medicine | DX: E11.622 Type 2 diabetes mellitus with other skin ulcer (principal); L97.822 Non-pressure chronic ulcer of other part of left lower leg with fat layer exposed; E11.51 Type 2 diabetes mellitus with diabetic peripheral angiopathy without gangrene; I89.0 Lymphedema, not elsewhere classified; I10 Essential (primary) hypertension; E78.5 Hyperlipidemia, unspecified; R22.43 Localized swelling, mass and lump, lower limb, bilateral; M06.9 Rheumatoid arthritis, unspecified; Z90.49 Acquired absence of other specified parts of digestive tract; Z87.891 Personal history of nicotine dependence; Z79.84 Long term (current) use of oral hypoglycemic drugs; Z79.899 Other long term (current) drug therapy; X58.XXXD Exposure to other specified factors, subsequent encounter | CPT/HCPCS: G0463; A6212 ==

== ENCOUNTER → 2024-11-25 | Outpatient (CLI) | payer MEDICARE ==
[~2024-11-25] MED LIST changes: +LIDOCAINE HCL 4% LTA SOL 4 ML VIAL TP ONE
== END | disposition home or self-care (01) ==
LOC: WHH 08:29
PROVIDERS: ATTEND Family Medicine
DX: E11.622 Type 2 diabetes mellitus with other skin ulcer (principal); L97.822 Non-pressure chronic ulcer of other part of left lower leg with fat layer exposed; E11.51 Type 2 diabetes mellitus with diabetic peripheral angiopathy without gangrene; I89.0 Lymphedema, not elsewhere classified; I10 Essential (primary) hypertension; E78.5 Hyperlipidemia, unspecified; R22.43 Localized swelling, mass and lump, lower limb, bilateral; M06.9 Rheumatoid arthritis, unspecified; Z90.49 Acquired absence of other specified parts of digestive tract; Z87.891 Personal history of nicotine dependence; Z79.84 Long term (current) use of oral hypoglycemic drugs; Z79.899 Other long term (current) drug therapy; X58.XXXD Exposure to other specified factors, subsequent encounter
CPT/HCPCS: G0463; A6212

== ENCOUNTER → 2024-12-02 | Outpatient (CLI) | payer MEDICARE ==
[~2024-12-02] MED LIST changes: -LIDOCAINE HCL 4% LTA SOL 4 ML VIAL TP ONE
== END | disposition home or self-care (01) ==
LOC: WHH 08:24
PROVIDERS: ATTEND Family Medicine
DX: E11.622 Type 2 diabetes mellitus with other skin ulcer (principal); L97.822 Non-pressure chronic ulcer of other part of left lower leg with fat layer exposed; E11.51 Type 2 diabetes mellitus with diabetic peripheral angiopathy without gangrene; I89.0 Lymphedema, not elsewhere classified; I10 Essential (primary) hypertension; E78.5 Hyperlipidemia, unspecified; R22.43 Localized swelling, mass and lump, lower limb, bilateral; M06.9 Rheumatoid arthritis, unspecified; Z90.49 Acquired absence of other specified parts of digestive tract; Z87.891 Personal history of nicotine dependence; Z79.84 Long term (current) use of oral hypoglycemic drugs; Z79.899 Other long term (current) drug therapy; X58.XXXD Exposure to other specified factors, subsequent encounter
CPT/HCPCS: G0463; A6212

== ENCOUNTER → 2024-12-30 | Outpatient (CLI) | payer MEDICARE | END | disposition home or self-care (01) | LOC: WHH 08:18 | PROVIDERS: ATTEND Family Medicine | DX: E11.622 Type 2 diabetes mellitus with other skin ulcer (principal); L97.822 Non-pressure chronic ulcer of other part of left lower leg with fat layer exposed; E11.51 Type 2 diabetes mellitus with diabetic peripheral angiopathy without gangrene; I89.0 Lymphedema, not elsewhere classified; I10 Essential (primary) hypertension; E78.5 Hyperlipidemia, unspecified; R22.43 Localized swelling, mass and lump, lower limb, bilateral; M06.9 Rheumatoid arthritis, unspecified; Z90.49 Acquired absence of other specified parts of digestive tract; Z87.891 Personal history of nicotine dependence; Z79.84 Long term (current) use of oral hypoglycemic drugs; Z79.899 Other long term (current) drug therapy; X58.XXXD Exposure to other specified factors, subsequent encounter | CPT/HCPCS: G0463; A6212 ==

== ENCOUNTER → 2025-01-13 | Outpatient (CLI) | payer MEDICARE | END | disposition home or self-care (01) | LOC: WHH 08:21 | PROVIDERS: ATTEND Family Medicine | DX: E11.622 Type 2 diabetes mellitus with other skin ulcer (principal); L97.822 Non-pressure chronic ulcer of other part of left lower leg with fat layer exposed; E11.51 Type 2 diabetes mellitus with diabetic peripheral angiopathy without gangrene; I89.0 Lymphedema, not elsewhere classified; I10 Essential (primary) hypertension; E78.5 Hyperlipidemia, unspecified; R22.43 Localized swelling, mass and lump, lower limb, bilateral; M06.9 Rheumatoid arthritis, unspecified; Z87.891 Personal history of nicotine dependence; Z90.49 Acquired absence of other specified parts of digestive tract; Z79.84 Long term (current) use of oral hypoglycemic drugs; Z79.899 Other long term (current) drug therapy; X58.XXXD Exposure to other specified factors, subsequent encounter | CPT/HCPCS: G0463 ==

== ENCOUNTER → 2025-01-27 | Outpatient (CLI) | payer MEDICARE | END | disposition home or self-care (01) | LOC: WHH 08:17 | PROVIDERS: ATTEND Family Medicine | DX: E11.622 Type 2 diabetes mellitus with other skin ulcer (principal); L97.822 Non-pressure chronic ulcer of other part of left lower leg with fat layer exposed; E11.51 Type 2 diabetes mellitus with diabetic peripheral angiopathy without gangrene; I89.0 Lymphedema, not elsewhere classified; I10 Essential (primary) hypertension; E78.5 Hyperlipidemia, unspecified; R22.43 Localized swelling, mass and lump, lower limb, bilateral; M06.9 Rheumatoid arthritis, unspecified; Z87.891 Personal history of nicotine dependence; Z90.49 Acquired absence of other specified parts of digestive tract; Z79.84 Long term (current) use of oral hypoglycemic drugs; Z79.899 Other long term (current) drug therapy | CPT/HCPCS: G0463; A6212 ==

== ENCOUNTER → 2025-03-03 | Outpatient (CLI) | payer MEDICARE | END | disposition home or self-care (01) | LOC: WHH 08:16 | PROVIDERS: ATTEND Family Medicine | DX: E11.622 Type 2 diabetes mellitus with other skin ulcer (principal); L97.812 Non-pressure chronic ulcer of other part of right lower leg with fat layer exposed; L97.822 Non-pressure chronic ulcer of other part of left lower leg with fat layer exposed; E11.51 Type 2 diabetes mellitus with diabetic peripheral angiopathy without gangrene; I89.0 Lymphedema, not elsewhere classified; I10 Essential (primary) hypertension; E78.5 Hyperlipidemia, unspecified; R22.43 Localized swelling, mass and lump, lower limb, bilateral; M06.9 Rheumatoid arthritis, unspecified; Z87.891 Personal history of nicotine dependence; Z90.49 Acquired absence of other specified parts of digestive tract; Z79.84 Long term (current) use of oral hypoglycemic drugs; Z79.899 Other long term (current) drug therapy | CPT/HCPCS: G0463 ==

== ENCOUNTER → 2025-03-31 | Outpatient (CLI) | payer MEDICARE ==
[~2025-03-31] MED LIST changes: +EZET10TA48 PO
== END | disposition home or self-care (01) ==
LOC: WHH 08:15
PROVIDERS: ATTEND Family Medicine
DX: I89.0 Lymphedema, not elsewhere classified (principal); E11.51 Type 2 diabetes mellitus with diabetic peripheral angiopathy without gangrene; I10 Essential (primary) hypertension; E78.5 Hyperlipidemia, unspecified; R22.43 Localized swelling, mass and lump, lower limb, bilateral; M06.9 Rheumatoid arthritis, unspecified; Z87.891 Personal history of nicotine dependence; Z90.49 Acquired absence of other specified parts of digestive tract; Z79.84 Long term (current) use of oral hypoglycemic drugs; Z79.899 Other long term (current) drug therapy
CPT/HCPCS: G0463

== ENCOUNTER 2025-06-19 14:35 | Observation (INO) | payer MEDICARE ==
[2025-06-19] VITALS (9 sets, daily range): BP systolic 140–165; BP diastolic 80–93; PULSE 93–98; RESP 16–22; TEMP 97.3–99; O2SAT 92–93
[~2025-06-19] VITALS: Ht 162.6 cm; Wt 77.1 kg
[~2025-06-19 14:35] MED LIST changes: -APIX5TAB PO; +ASPI-1005 PO; -BACTSS PO; +BUDE0.5A3 NEB; +DOCU100C33 PO; +DRON400T7 PO; -EZET10TA48 PO; +EZET10TA80 PO; +LACT-451 PO; +LEVA15HF6 IH; +LOPE2CAP14 PO; +MIDO5TAB4 PO; +MUPI22OI2 TP; +NYST15CR34 TP; +POLY17PO52 PO; -ROSU20TA98 PO; +TAMS-55 PO; +[UNRECOGNIZED DRUG - CODE] PO
--- NOTE | 2025-06-19 14:39 | ERN ---
General Chief Complaint: Abnormal Labs Stated Complaint: ABDNORMAL LABS Time Seen by MD: 14:36 Source: patient History of Present Illness Initial Comments Patient is a an 84-year-old gentleman coming in due to low hemoglobin and hematocrit. Per patient he has a history of repeated anemia which requires blood transfusion. He has been feeling generalized weakness is his only co mplaint. Allergies: Coded Allergies: No Known Drug Allergies (Unverified Allergy, Unknown, 10/04/23) Home Meds Active Scripts Dronedarone Hydrochloride (Multaq) 400 Mg Tablet, 400 MG PO BID, #60 TAB 1 Refi ll Prov:KELLI MEDINA PAC 04/16/25 Reported Medications Levalbuterol Tartrate (Xopenex Hfa) 45 Mcg/Actuation Hfa.aer.ad, 2 PUFF IH TIDP PRN for wheezing, #15 GM 0 Refills 05/16/25 Budesonide (Budesonide) 0.5 Mg/2 Ml Ampul.neb, 1 VIAL NEB TID for SOB for 30 Days, #120 ML 0 Refills 05/16/25 Docusate Sodium (Docusate Sodium) 100 Mg Capsule, 1 CAP PO BID for constipation for 7 Days, #14 CAP 0 Refills 05/16/25 Lactulose (Lactulose) 10 Gram/15 Ml Solution, 30 ML PO BID for CONSTIPATION 05/16/25 Polyethylene Glycol 3350 (Polyethylene Glycol 3350) 17 Gram Powd.pack, 1 PACKET PO DAILY for constipation for 10 Days, #10 PACKET 0 Refills 05/16/25 Midodrine HCl (Midodrine HCl) 5 Mg Tablet, 1 TAB PO TID for 30 Days, #90 TAB 0 Refills 05/16/25 Loperamide HCl (Anti-Diarrheal) 2 Mg Capsule, 2 CAP PO QID for LOOSE STOOLS for 5 Days, #15 CAP 0 Refills 05/16/25 Tamsulosin HCl (Flomax) 0.4 Mg Cap.er.24h, 1 CAP PO DAILY for 30 Days, #30 CAP 0 Refills 05/16/25 Aspirin (ASPIRIN 81MG CHEW TAB) 81 Mg Tab.chew, 1 TAB PO DAILY for 30 Days, #30 TAB 0 Refills 05/16/25 Loratadine (Loradamed) 10 Mg Tablet, 1 TAB PO DAILY for allergy symptoms for 30 Days, #30 TAB 0 Refills 05/16/25 Nystatin (Nystatin) 100,000 Unit/Gram Cream.gm., 1 APPL TP BID for 5 Days, #15 GM 0 Refills apply to affected area(s) 05/16/25 Mupirocin (Mupirocin Ointment) 2 % Oint, 1 APPL TP DAILY for 5 Days, #15 GM 0 Refills apply to affected area(s) 05/16/25 Ezetimibe (Ezetimibe) 10 Mg Tablet, 10 MG PO HS, TAB 04/06/25 Tramadol Hcl (Tramadol HCl) 50 Mg Tablet, 50 MG PO TID PRN for PAIN, TAB 12/24/23 Metformin HCl (Metformin HCl) 500 Mg Tablet, 500 MG PO DAILY, TAB 12/24/23 Pantoprazole Sodium (Pantoprazole Sodium) 40 Mg Tablet.dr, 40 MG PO DAILY, TAB 12/24/23 Multivitamin (Multivitamin) 1 Each Tablet, 1 EACH PO DAILY, TAB 10/04/23 Prednisone (Prednisone) 20 Mg Tablet, 20 MG PO DAILY, TAB 10/04/23 Olmesartan Medoxomil (Olmesartan Medoxomil) 5 Mg Tablet, 5 MG PO DAILY, TAB 10/04/23 Furosemide (Furosemide) 20 Mg Tablet, 20 MG PO DAILY, TAB 10/04/23 Leflunomide (Leflunomide) 20 Mg Tablet, 20 MG PO DAILY, TAB 10/04/23 Past Medical History Past Medical History: Anemia, COPD, Diabetes-Type II, High Cholesterol, Hypertension Medical History Other: RA Past Surgical History: Cholecystectomy Social History Social History: Other ROS Dictation CONSTITUTIONAL: No chills, no fever, weakness, no diaphoresis, malaise. HEAD/FACE: No signs of trauma. EENT: No eye pain, no blurred vision, no tearing, no double vision, no ear pain, no ear discharge, no nose pain, no nasal congestion, no throat pain, no throat swelling, no mouth pain. RESPIRATORY: No cough, no orthopnea, no SOB, no stridor, no wheezing. CARDIOVASCULAR: No chest pain, no edema, no palpitations, no syncope. GASTROINTESTINAL/ABDOMINAL: No abdominal pain, no constipation, no diarrhea, no nausea, no vomiting. GENITOURINARY: No abnormal discharge, no dysuria, no frequent urination, no hematuria. No complaints of pain in the genitals. MUSCULOSKELETAL: No back pain, no gout, no joint pain, no joint swelling, no muscle pain, no muscle stiffness, no neck pain. INTEGUMENTARY: No change in color, no change in hair/nails, no dryness, no lesion, no lumps, no rash. NEUROLOGICAL/PSYCH: No anxiety, not depressed, no emotional problem, no headache, no numbness, no pre-existing deficit, no history of seizures, no tremors, no weakness. HEMATOLOGIC/LYMPHATIC: Not anemic, no history of blood clots, no apparent bleeding, no bruising, glands not swollen. All Systems Negative, Except as Noted. Physical Exam Physical Exam Dictation VITAL SIGNS: Reviewed. GENERAL APPEARANCE: Alert, oriented x3, no acute distress, obese. HEAD AND FACE: Non-traumatic. EYES: PERRL, pink conjunctivas, eyelid no trauma, anterior chamber clear. EARS: Pinnas intact and no signs of trauma or erythema. Ear canals clear and no discharge. TMs no erythema. NOSE: No discharge, no bleeding. OROPHARYNX: Mouth normal, teeth no caries, tongue pink. Pharynx clear, no erythema. Tonsils no exudates, no abscesses noted. Mucous membrane moist. NECK: Supple, non-tender, no thyromegaly, no masses, no JVD, no bruits. BREAST: Deferred. CHEST: No tenderness, no crepitus, no paradoxical movement, no retractions. LUNGS: Clear, well-ventilated, symmetric, no rales, no wheezing, no rhonchi, no stridor, good breath sounds bilaterally. HEART: Regular rate, regular rhythm, no murmur, no gallops. VASCULAR: No peripheral edema. ABDOMEN: Soft, positive bowel sounds, nondistended, no guarding, nontender, no rebound, no masses no hepatomegaly, no splenomegaly, no Causey's sign, no hernias. RECTAL: Deferred. GENITAL: Deferred. NEUROLOGICAL: Normal speech, gross motor function intact, gross sensory function intact. MUSCULOSKELETAL: Neck nontender, full range of motion, back nontender, full range of motion. EXTREMITIES: Nontender, full range of motion. SKIN: Pale, dry, no turgor, no rash, no lacerations, no abrasions, no contusions. LYMPHATICS: Deferred. Results Laboratory and Microbiology Lab and Micro Result Laboratory Tests Test 06/19/25 14:57 White Blood Count 12.3 K/uL (4.8-10.8) H Red Blood Count 2.35 MIL/uL (4.50-6.20) L Hemoglobin 6.9 g/dL (14.0-18.0) *L Hematocrit 23.2 % (42-54) L Mean Corpuscular Volume 98.7 fL (79-99) Mean Corpuscular Hemoglobin 29.4 pg (27.0-33.0) Mean Corpuscular Hemoglobin Concent 29.7 g/dL (32.0-36.0) L Red Cell Distribution Width 19.8 % (11.0-15.5) H Platelet Count 216 K/uL (130-400) Mean Platelet Volume 10.5 fL (7.5-10.5) Immature Granulocyte % (Auto) 8.3 % (0-1) H Neutrophils (%) (Auto) 79.5 % (40.0-77.0) H Lymphocytes (%) (Auto) 8.4 % (21.0-51.0) L Monocytes (%) (Auto) 3.1 % (3.0-13.0) Eosinophils (%) (Auto) 0.2 % (0.0-8.0) Basophils (%) (Auto) 0.5 % (0.0-5.0) Neutrophils # (Auto) 9.8 K/uL (1.8-7.7) H Lymphocytes # (Auto) 1.0 K/uL (1.0-4.8) Monocytes # (Auto) 0.4 K/uL (0.1-1.0) Eosinophils # (Auto) 0.02 K/uL (0.00-0.70) Basophils # (Auto) 0.06 K/uL (0.00-0.20) Absolute Immature Granulocyte (auto 1.02 K/uL (0-1) H Nucleated Red Blood Cells 6.7 % (0.0-0.19) H Sodium Level 139 mmol/L (136-145) Potassium Level 4.3 mmol/L (3.5-5.1) Chloride Level 100 mmol/L (101-111) L Carbon Dioxide Level 25 mmol/L (21-32) Blood Urea Nitrogen 40 mg/dL (7-18) H Creatinine 3.0 mg/dL (0.5-1.3) H Glomerular Filtration Rate Calc 20 mL/min (>90) Random Glucose 213 mg/dL (70-105) H Total Calcium 7.9 mg/dL (8.5-10.1) L MDM MDM: Differential diagnosis: Anemia, chronic anemia, end-stage renal disease, Rationale: Tests considered and ordered secondary to shared decision making include: Previous outside records reviewed: Old ER visits. Risk of complication and/or morbidity or mortality of patient management: None Medications-Per medication reconciliation Need for hospitalization: Patient does meet criteria for hospitalization. Need for emergency major/minor surgery: No There are no social concerns with this patient. Prescription drug management Prescriptions will include symptomatic care Patient's prior external medical records from other ER visits were reviewed by me as indicated. Prior testing and results from previous visits were reviewed. Prior tests were taken into account with medical decision making and resource utilization, independent historian/historians were used to obtain complete medical history. I independently interpreted the test that were performed, results were reviewed by me and considered findings on radiology if ordered. Medical management and examination interpretation discussions were had by me with other qualified healthcare professionals as indicated for the patient's care. ED Course Orders Procedure Category Date Status Time Cbc With Differential LAB 06/19/25 In Process 14:41 Basic Metabolic Panel LAB 06/19/25 Complete 14:41 Type And Screen BBK 06/19/25 Complete 14:41 Occult Blood Stool LAB 06/19/25 Logged Single Only 14:41 Manual Differential LAB 06/19/25 In Process 14:57 Vital Signs Date Time Temp Pulse Resp B/P (MAP) Pulse Ox O2 Delivery O2 Flow Rate FiO2 06/19/25 14:55 97.9 100 16 160/77 96 Room Air* 0 21 06/19/25 14:37 97.9 97 19 129/54 93 Room Air 0 DX & DISP Disposition: Inpatient Decision to Admit Time: 15:55 Departure Impression: Primary Impression: Anemia Additional Impressions: Chronic anemia, ESRD (end stage renal disease) Condition: Stable Referrals: SELENA LAROSE MD (PCP) DOMINGO RAINEY MD Jun 19, 2025 14:39
[2025-06-19 15:09] LABS: IMMATURE GRANULOCYTE ABSOLUTE 1.02 K/uL (0-1); NUCLEATED RED BLOOD CELLS 6.7 % (0.0-0.19); PLATELET COUNT (AUTO) 216 K/uL (130-400); RED BLOOD CELL COUNT(AUTO) 2.35 MIL/uL (4.50-6.20); RED CELL DISTRIBUTION WIDTH 19.8 % (11.0-15.5); WHITE BLOOD COUNT (AUTO) 12.3 K/uL (4.8-10.8)
[2025-06-19 15:28] LABS: CREATININE 3.0 mg/dL (0.5-1.3); GLOMERULAR FILTR. RATE CALC 20.0 mL/min (>90); GLUCOSE,RANDOM 213.0 mg/dL (70-105); SODIUM SERUM 139.0 mmol/L (136-145); UREA NITROGEN, BLOOD 40.0 mg/dL (7-18)
[2025-06-19 16:24] LABS: BAND NEUTROPHILS % (MANUAL) 11 % (0-2); LYMPHOCYTES % (MANUAL) 6 % (22-44); MAN.DIFF COMMENT-IMPRESSION MANUAL DIFFERENTIAL; REACTIVE LYMPHOCYTES 5 % (0-0); SEGMENTED NEUTROPHILS % 78 % (40-70); WBC MORPHOLOGY IMMATURE GRAN 1+
--- NOTE | 2025-06-19 17:02 | NUR ---
PT CONSENTED TO BLOOD TRANSFUSION
--- NOTE | 2025-06-19 17:07 | NUR ---
FIRST ATTEMPT AT CALLING REPORT
--- NOTE | 2025-06-19 20:00 | NUR ---
RECEIVED PT RECEIVED WITH ONGOING BLOOD TRANSFUSION OF FIRST UNIT OF TWO ORDERED. PT TOLERATING BLOOD TRANSFUSION WELL. V/S STABLE, NO UNTOWARD S/SX NOTED. NO COMPLAINTS VERBALIZED AT THIS TIME. RE-ITERATED FALL PRECAUTIONS, PT VERBALIZES UNDERSTANDING. CALL LIGHT WITHIN REACH. WILL RE-ASSESS PT.
--- NOTE | 2025-06-19 21:20 | NUR ---
PX PT HAD ALREADY EATEN PM SNACKS. WOUND DRESSING CHANGED TO BLE. PICTURES TAKEN OF WOUNDS. CLEANSED WOUNDS WITH NS THEN PAT DRY. LEFT CASAS ULCER COVERED WITH ALLEVYN FOAM REQUESTED BY PT WOUND CARE HAD DONE THE PREVIOUS DRESSING CHANGE AND RIGHT CASAS ULCERS COVERED WITH GAUZE AND SECURED WITH KERLIX AND TAPE. KEPT RESTED AND COMFORTABLE IN BED. CALL LIGHT WITHIN REACH.
[2025-06-19] MEDS ORDERED: LOPERAMIDE HCL 2 MG CAP PO PRN (21:30)
--- NOTE | 2025-06-19 22:15 | NUR ---
FINISHED TRANSFUSION OF FIRST UNIT OF PRBC COMPLETED. V/S MONITORED, STABLE. NO UNTOWARD S/SX NOTED. ORDERED LASIX IV ADMINISTERED.
--- NOTE | 2025-06-19 22:45 | NUR ---
SECOND CHECKED SECOND UNIT OF PRBC WITH SKYLER NICHOLSON. STARTED TRANSFUSION. WILL WATCH PT CLOSELY.
[2025-06-19] MEDS ORDERED: ALBUTEROL 0.083% 2.5 MG/3 ML INH IH PRN (23:00)
[2025-06-19] MEDS ORDERED: LACTULOSE 20 GM/30 ML UDCUP PO PRN (23:00)
--- NOTE | 2025-06-19 23:00 | NUR ---
RE-ASSESS PT TOLERATING BLOOD TRANSFUSION WELL. NO S/SX OF DISTRESS. V/S MONITORED, STABLE BUT WITH ELEVATED MU=145/81, HR=97 BPM. WILL RE-CHECK PT.
[2025-06-20] VITALS (10 sets, daily range): BP systolic 148–178; BP diastolic 77–100; PULSE 91–104; RESP 18–20; TEMP 97.5–98.7; O2SAT 91–95
--- NOTE | 2025-06-20 02:35 | NUR ---
COMPLETED BLOOD TRANSFUSION COMPLETED. DENIES ANY CONCERNS AT THIS TIME. NO DISTRESS NOTED. MONITORED V/S, PT'S BP ELEVATED AT 176/90, HR=91. MEDICATED WITH LASIX IV ORDERED. WILL RE-ASSESS PT.
[2025-06-20 06:03] LABS: IMMATURE GRANULOCYTE ABSOLUTE 0.77 K/uL (0-1); NUCLEATED RED BLOOD CELLS 5.6 % (0.0-0.19); PLATELET COUNT (AUTO) 195 K/uL (130-400); RED BLOOD CELL COUNT(AUTO) 3.59 MIL/uL (4.50-6.20); RED CELL DISTRIBUTION WIDTH 18.4 % (11.0-15.5); WHITE BLOOD COUNT (AUTO) 11.7 K/uL (4.8-10.8)
[2025-06-20 06:19] LABS: ASPARTATE AMINOTRANSFERASE 20.0 U/L (10-37); CREATININE 2.8 mg/dL (0.5-1.3); GLOMERULAR FILTR. RATE CALC 22.0 mL/min (>90); GLUCOSE,RANDOM 122.0 mg/dL (70-105); SODIUM SERUM 139.0 mmol/L (136-145); TOTAL PROTEIN, SERUM 5.7 g/dL (6.0-8.3); UREA NITROGEN, BLOOD 39.0 mg/dL (7-18)
--- NOTE | 2025-06-20 06:20 | NUR ---
ROUNDS PT RESTING IN BED. NO DISTRESS NOTED. DENIES ANY CONCERNS AT THIS TIME. KEPT RESTED AND COMFORTABLE. FOR MORE CARE.
--- NOTE | 2025-06-20 06:34 | NUR ---
MD DR FITZPATRICK IN TO SEE PT. NEW ORDERS GIVEN, PLEASE REFER TO CPOE. ENDORSING TO AM SHIFT FOR MORE CARE.
[2025-06-20] MEDS: BUDESONIDE 0.5 MG/2 ML INH IH SCH (07:23)
[2025-06-20] MEDS: BUDESONIDE 0.5 MG/2 ML INH IH ONE (07:24)
[2025-06-20] MEDS ORDERED: MAGNESIUM 2GM PREMIX 50ML IV ONE (08:00)
[2025-06-20] MEDS: DRONEDARONE HYDROCHLORIDE 400 MG TABLET PO SCH (08:26)
[2025-06-20] MEDS: LORATAdine 10 mg 10 MG TABLET PO SCH (08:26)
[2025-06-20] MEDS: MULTIVITAMIN WITH MINERALS TABLET PO SCH (08:26)
[2025-06-20] MEDS: ASPIRIN 81MG CHEW TAB PO SCH (08:27)
[2025-06-20] MEDS: MAGNESIUM SULFATE 1 GM in 0.9%NACL 50ML 50 ML IV ONE (08:28)
[2025-06-20] MEDS: HOME MEDICATION 1 EACH PO SCH (08:28)
[2025-06-20] MEDS: MUPIROCIN OINTMENT 22 GM TUBE TP SCH (08:28)
[2025-06-20] MEDS ORDERED: BUDESONIDE 0.5 MG/2 ML INH IH SCH (09:00)
--- NOTE | 2025-06-20 15:58 | NUR ---
DISCHARGE PIV DC'D PATIENT BEING TRANSFERRED BACK TO [facility]. REPORT GIVEN AT 1448 TO NURSE. INFORMED NURSE THAT PATIENT CAN BE TRANSFERRED [facility]IA [facility] SO [facility] WILL BE GETTING PATIENT BY [facility]. PATIENT INFORMED THAT HE WILL BE GOING BACK TO [facility]. WAITING FOR TRANSPORT AT THE MOMENT.
--- NOTE | 2025-06-20 16:56 | NUR ---
DISCHARGE CANCELLED WAS INFORMED BY [facility] THAT NERY JERRY AT [facility] WAS NOT TAKING PATIENT BACK DUE TO HIM BEING THERE FOR SHORT TERM CARE. PATIENT HAS TO BE ADMITTED FOR 3 MIDNIGHTS IN ORDER TO BE ABLE TO GO BACK. I UPDATED DR. FITZPATRICK ON IT AND HE SAID TO ASK PATIENT IF HE WANTED TO GO HOME OR TO [facility]. PATIENT TOLD HAJA THAT HIS DAUGHTER WON'T BE COMING INTO TOWN UNTIL JULY SO HE HAS NO ONE AT THE MOMENT. DR. FITZPATRICK SAID IT WAS OKAY TO KEEP PATIENT.
--- NOTE | 2025-06-20 17:49 | NUR ---
LUZ PALMER SPOKE TO ARIC FELDMAN FOR [facility]. REP SAID THAT HE WAS NOT FROM THAT FACILITY. BRETT WENT AND SPOKE TO PATIENT AND LOOKED IN CHART AND IT SEEMS HE IS FROM [facility]. CM LET REP KNOW AND VERIFIED PATIENT IS FROM THAT FACILITY SHORT TERM RESIDENT. SAID OKAY FOR HIM TO RETURN. CM LET NURSE KNOW. REP CALLED AT 1640 SAID PATIENT NEEDED 3 MIDNIGHT SINCE HE WAS ALREADY OVER HIS 30 DAYS. CM LET NURSE AND PATIENT KNOW. PATIENT WORRIED THAT HE WOULD NOT BE ABLE TO GO BACK. SAID HAD TROUBLE BEFORE. DAUGHTER IS NOT GOING TO BE BACK UNTIL July. NURSE LET DR FITZPATRICK KNOW. DR FITZPATRICK SAID TO ASK PATIENT IF HE WANTED TO GO HOME OR GO BACK TO FACILITY. PATIENT SAID HE HAD NO CHOICE HE NEEDED TO GO BACK NOBODY AVAILABLE TO HELP AT HOME. AT 1718 GOT A CALL FROM THE FACILITY DIRECTOR SAID THAT THEIR OFFICE PERSON WAS NOT RIGHT THAT PATIENT COULD GO BACK. THAT HE WAS ON INTERRUPTED STAY FOR BLOOD. CM LET NURSE AND PATIENT KNOW THAT PATIENT WAS OKAY TO RETURN. FACILITY REP SAID THEY WOULD SEND A INSPECTING AND TESTING LEAD HAND. HE APOLOGIZED FOR ERROR. Addendum: 06/20/25 at 1807 by HAJA BEY RN CM Amended: Links added.
--- NOTE | 2025-06-20 17:52 | NUR ---
DISCHARGE PATIENT ABLE TO BE DISCHARGED AFTER ALL. [facility] WAS GIVEN ACCEPTANCE BY [facility] ROLDAN TO RECEIVE PATIENT BACK. PATIENT WAS PICKED UP BY [facility]SPORT RIGHT NOW.
[2025-06-20] MEDS ORDERED: EZETIMIBE 10 MG TAB PO SCH (21:00)
--- NOTE | 2025-06-21 00:36 | DS ---
ADMITTING DIAGNOSES: * Anemia status post transfusion of 3 units of packed RBCs, stable with hemoglobin 10. * Hypomagnesemia, magnesium 1.1. The patient has been given only 1 g of magnesium sulfate. * Diabetes mellitus stable. * Hypertension is stable. * COPD is stable. * Chronic kidney disease with GFR of 20%. The patient is going to be discharged back to the SNF. HOSPITAL COURSE: The patient is hospitalized with anemia, transfused with 3 units of packed RBCs, hypomagnesemia, magnesium supplementation, fatigue stable. Hypertension is stable. Diabetes mellitus is stable. TID: [id number] RECEIPT: [id number]
--- NOTE | 2025-06-21 00:38 | HP ---
ADMITTING HISTORY AND PHYSICAL CHIEF COMPLAINT: Hemoglobin of 6.9. HISTORY OF PRESENT ILLNESS: This 84-year-old gentleman was sent to the hospital because of generalized weakness and the patient was found to have hemoglobin 6.9 with no source of bleeding at this time. The patient is admitted for short-term observation per hospital transfusion at this time. The patient is a resident of skilled care at this time. The patient has history of diabetes, hypertension, and the patient has chronic kidney disease. As per the patient, the patient is not a dialysis patient. PAST MEDICAL HISTORY: Significant for COPD, diabetes, hypertension, and anemia. PAST SURGICAL HISTORY: Cholecystectomy. MEDICATIONS: The patient takes multiple medications including Xopenex, budesonide, docusate, lactulose, polyethylene glycol, midodrine, Flomax, aspirin, mupirocin cream, ezetimibe 10 mg, tramadol 50 mg, metformin 500 mg, pantoprazole, prednisone 20 mg daily, olmesartan 5 mg, furosemide 20 mg, leflunomide 20 mg. ALLERGIES: As per the chart, none. SOCIAL HISTORY: Denies history of smoking, alcohol, substance use. FAMILY HISTORY: Noncontributory. REVIEW OF SYSTEMS: HEENT: Negative. CARDIOVASCULAR: Denies chest pain, palpitations. RESPIRATORY: Denies shortness of breath. GASTROINTESTINAL: Nausea. GENITOURINARY: Negative. MUSCULOSKELETAL: Joint pains. PHYSICAL EXAMINATION: GENERAL: The patient is awake, alert, oriented to person, place and time. HEENT: Pupils equal. Mucous membranes appear to be dry. NECK: Supple. LUNGS: Mostly decreased breath sounds. No wheezes, rhonchi. HEART: Regular rate and rhythm. ABDOMEN: Soft and nontender. NEUROLOGICAL: No focal deficits noted. LABORATORY DATA: Significant for WBC 12.3, hemoglobin 6.9, platelet count is 216. Creatinine 3.0, sugar is 213. ASSESSMENT AND PLAN: * Anemia. The patient is going to be transfused 2 units of packed RBC with between and after transfusion. * Chronic kidney disease with a GFR of 20%. * Diabetes mellitus, stable. * Hypertension, stable. * Chronic obstructive pulmonary disease, on nebulizer treatments. Conditions were discussed. Questions answered. TID: [id number] RECEIPT: [id number]
--- NOTE | 2025-06-21 09:46 | NUR ---
DC prior to PT eval.
== END 2025-06-20 17:51 ==
LOC: EDH 14:35 → EDHIP 16:01 → 3CH 17:20
PROVIDERS: ADMIT Family Medicine; ATTEND Family Medicine
DX: I12.0 Hypertensive chronic kidney disease with stage 5 chronic kidney disease or end stage renal disease (principal); E11.22 Type 2 diabetes mellitus with diabetic chronic kidney disease; N18.6 End stage renal disease; D63.1 Anemia in chronic kidney disease; E83.42 Hypomagnesemia; E78.00 Pure hypercholesterolemia, unspecified; R53.1 Weakness; J44.9 Chronic obstructive pulmonary disease, unspecified; Z79.899 Other long term (current) drug therapy; Z98.890 Other specified postprocedural states; Z86.2 Personal history of diseases of the blood and blood-forming organs and certain disorders involving the immune mechanism
CPT/HCPCS: 36430; 96375; 99284; 80048; 85025 ×2; 86850; 86900; 86901; 86923; 82948 ×4; 82270; 36415 ×2; 96376; 96365; 83735; 80053; 94640; G0378 ×26; P9016 ×2; J1938 ×2; J3475; 94664